=== PATIENT | female | born 1995 ===

== ENCOUNTER 2021-05-27 07:52 | Observation (INO) ==
--- NOTE | 2021-05-16 15:29 | Anesthesiology Consultation ---
Date of Service May 16, 2021 Assessment & Plan (1) Encounter for pre-operative examination: COVID screening: Per assessment on 05/16: Travel screen negative, no known COVID- 19 positive contacts or current COVID-19 related symptoms. Patient vaccinated. Surgeon arranging preop COVID testing. Awaiting results. Chart Review Chart Review: Acceptable Risk for Surgery and Patient NOT seen in Pre Admission Testing History Surgery Operation Date: 05/27/21 10:05 Proposed Procedures p Bilateral Non-Cancerous Mastectomy with Free Nipple Graft - Cristel Chavez MD Height/Weight Height: 5 ft 5 in Weight: 85.729 kg Allergies Allergy/AdvReac Type Severity Reaction Status Date / Time No Known Allergies Allergy Verified 05/16/21 13:48 Medications Home Medications Medication Instructions Recorded Confirmed Last Taken famotidine 20 mg tablet 20 mg PO HS 02/03/21 05/16/21 Unknown pantoprazole 40 mg tablet,delayed 40 mg PO HS 02/03/21 05/16/21 Unknown release sertraline 50 mg tablet 50 mg PO HS 02/03/21 05/16/21 Unknown testosterone 20.25 mg/1.25 gram 1 pump TOPICAL QA 02/03/21 05/16/21 Unknown (1.62 %) transdermal gel pump cephalexin 500 mg capsule 500 mg PO TID 7 Days #21 cap 05/14/21 05/16/21 Unknown oxycodone-acetaminophen 5 mg-325 1 tab PO Q4H PRN 3 Days #18 tab 05/14/21 05/16/21 Unknown mg tablet (Percocet) Marijuana 1 inh INHALATION MONTHLY 05/16/21 05/16/21 Unknown albuterol sulfate 90 mcg/actuation 1 puff INHALATION QID PRN 05/16/21 05/16/21 Unknown aerosol inhaler (Ventolin HFA) cholecalciferol (vitamin D3) 25 25 mcg PO HS 05/16/21 05/16/21 Unknown mcg (1,000 unit) tablet (Vitamin D3) lactobacillus combination no.4 3 3,000 mmu cells PO HS 05/16/21 05/16/21 Unknown billion cell capsule (Probiotic) lamotrigine 25 mg tablet (Lamictal) 25 mg PO HS 05/16/21 05/16/21 Unknown venlafaxine 75 mg capsule,extended 75 mg PO QAM 05/16/21 05/16/21 Unknown release 24 hr Past Medical History Medical History (Updated 05/16/21 @ 15:27 by Manisha Bailey) Anxiety Asthma Controlled Depression Zhcqnu-wn-qafm transgender person GERD (gastroesophageal reflux disease) Hyperlipemia Migraine Hx Temporomandibular joint disorder Remote right sided popping, no locking Past Family History Family History Mother Diabetes Other Breast cancer Heart disease Lung cancer Prostate cancer Past Surgical History Surgical History History of appendectomy History of cholecystectomy History of colonoscopy History of esophagogastroduodenoscopy (EGD) History of oral surgery History of tonsillectomy Social History Smoking Status: Former smoker Do You Dip or Chew Tobacco: No Smoking End Date: QUIT 2018 Hx Alcohol Use: Yes Alcohol type: wine alcohol intake frequency: a few times a month Hx Substance Use: Yes substance use type: marijuana Substance Use Type Other:: MARIJUANA INHALATION FEW TIMES PER MONTH Lab Results Anesthesia Preop Results Results Anesthesia Widget: WBC 5.56 K/uL (4.8-10.8) 05/15/21 Hgb 16.6 g/dL (12.0-16.0) H 05/15/21 Hct 47.6 % (37-47) H 05/15/21 Plt 304 K/uL (130-400) 05/15/21 Na 138 mmol/L (136-145) 05/15/21 K 3.7 mmol/L (3.5-5.1) 05/15/21 Cl 105 mmol/L (98-107) 05/15/21 CO2 28 mmol/L (21-32) 05/15/21 BUN 6 mg/dl (7-18) L 05/15/21 Creat 0.78 mg/dl (0.6-1.2) 05/15/21 Glucose Level 90 mg/dl (70-99) 05/15/21 PT 10.3 Seconds (9.0-12.0) 05/15/21 PTT 27.9 Seconds (21.0-31.0) 05/15/21 INR 1.0 (0.9-1.1) 05/15/21
[~2021-05-27 07:52] MED LIST: LACTATED RINGER'S 1,000 ML IV SCH; ceFAZolin 2000MG 2,000 MG/15 ML SYR IV SCH
--- NOTE | 2021-05-27 08:45 | History & Physical Bridge Note ---
Date of Service May 27, 2021 History & Physical Bridge Note I have examined the patient, reviewed the History & Physical and in the interval since the performance of the History & Physical I have noted the following changes of clinical significance: no changes noted
[2021-05-27] MEDS ORDERED: LIDOCAINE 2% 2 ML VIAL/AMP(20MG/ML) INFIL ONE (09:25)
[2021-05-27] MEDS ORDERED: ONDANSETRON INJ 2 MG/ML 2 ML VIAL ONE (09:25)
[2021-05-27] MEDS ORDERED: DEXAMETHASONE SOD INJ 4 MG/ML VIAL ONE (09:25)
[2021-05-27] MEDS ORDERED: ROCURONIUM BROMIDE 10 MG/ML 5 ML VIAL IV ONE ×2 (09:25→11:15)
[2021-05-27] MEDS ORDERED: PROPOFOL IV EMULSION 10 MG/ML 20 ML VIAL IV ONE (09:25)
[2021-05-27] MEDS ORDERED: MIDAZOLAM HCL 1 MG/ML 2ML VIAL ONE (09:26)
[2021-05-27] MEDS ORDERED: fentaNYL citrate 100 MCG/2 ML VIAL ONE (09:26)
[2021-05-27] MEDS ORDERED: PROMETHAZINE HCL 6.25 MG in SODIUM CHLORIDE 0.9% 50 ML IV PRN (09:40)
[2021-05-27] MEDS ORDERED: ATROPINE SULFATE 0.1 MG/ML 10ML SYR IV PRN (09:40)
[2021-05-27] MEDS ORDERED: ONDANSETRON INJ 2 MG/ML 2 ML VIAL IV PRN (09:40)
[2021-05-27] MEDS ORDERED: HYDROmorphone INJ 2 MG/ML SYR/VIAL IV PRN (09:40)
[2021-05-27] MEDS ORDERED: ePHEDrine sulfate 50 MG/ML AMP IV PRN (09:40)
[2021-05-27] MEDS ORDERED: BUPIVACAINE 0.25% 30 ML VIAL ONE (09:57)
[2021-05-27] MEDS ORDERED: LIDOCAINE/EPINEPHRINE 1% 20 ML VIAL ONE (09:57)
[2021-05-27] MEDS ORDERED: THROMBIN FOR SOLN 20000 UNIT KIT ONE (10:03)
[2021-05-27] MEDS ORDERED: EPINEPHrine HCL INJ 1 MG/ML 30ML ONE (10:27)
[2021-05-27] MEDS ORDERED: LIDOCAINE 1% LOCAL 20 ML VIAL ONE (10:27)
[2021-05-27] MEDS ORDERED: EPINEPHrine INJ 1 MG/ML AMP ONE (10:29)
[2021-05-27] MEDS ORDERED: HYDROmorphone INJ 2 MG/ML SYR/VIAL ONE (11:15)
[2021-05-27] MEDS ORDERED: ACETAMINOPHEN 1000 MG/100 ML IV IV ONE (13:27)
--- NOTE | 2021-05-27 14:32 | Post Operative Brief Note ---
PG Immediate Post Op with CF Date of Surgery May 27, 2021 Pre & Post Diagnosis Operation Date: 05/27/21 10:00 Pre-Op Diagnosis: Caeqpx-ze-Gvrn Transgender Person Post-Op Diagnosis: Rxvvjn-ck-Fomx Transgender Person I identified the patient and participated in the time-out.: Yes Procedure Operation Date: 05/27/21 10:00 Actual Procedures p Bilateral Non-Cancerous Mastectomy with Free Nipple Graft(Bilateral) - Cristel Chavez MD Surgeon Cristel Chavez MD Nurse Advisor Alyssa Leong PA-C Estimated Blood Loss 25 Findings Consistent with Post-Op Diagnosis Specimens Specimen Description: A: Left Breast Tissue (Fresh) B: Right Breast Tissue (Fresh) Drains Mikey-Cash Drain (15 bruneian with trocar x2)
--- NOTE | 2021-05-27 14:55 | Operative Report ---
PG Post Operative Report Pre & Post Diagnosis Operation Date: 05/27/21 10:00 Pre-Op Diagnosis: Mrhror-vi-Darl Transgender Person Post-Op Diagnosis: Yjuesr-kw-Wvje Transgender Person I identified the patient and participated in the time-out.: Yes Procedure Operation Date: 05/27/21 10:00 Actual Procedures p Bilateral Non-Cancerous Mastectomy with Free Nipple Graft(Bilateral) - Cristel Chavez MD Surgeon Cristel Chavez MD [place] Line Attendant Alyssa Leong PA-C Estimated Blood Loss 25 Findings Consistent with Post-Op Diagnosis Specimens bilateral breast tissue to pathology Drains JORDAN x2 Indications transgender male, desiring gender affirming mastectomy Description of Procedure The risks benefits and alternatives of the procedure were explained the patient agreed and signed consent. He was identified and marked in the preoperative hol ding area. I marked the incisions along the inframammary folds and made the superior incision in an elliptical fashion in order to provide a horizontal scar pattern if possible. I also marked the position where anticipated placing the nipple areolar complex and had the patient confirmed the site. He was brought to the operating room where he was placed under general anesthesia in supine position without incident. Surgical site was prepped and draped sterilely. A timeout procedure was performed. 1% lidocaine with epinephrine was used to anesthetize the planned incisions. I began the procedure on the left side by making a small stab incision along the superior incision. Tumescent fluid consisting of lidocaine plain, epinephrine, and lactated Ringer's was infiltrated along the lateral border of the pectoralis major. Liposuction to this area was performed using a 3 mm suction cannula until there was improvement in the volume and contour of the axillary breast and fat covering lateral pectoralis. A breast tourniquet was created using a lap sponge and Sheridan clamp, and areolar and nipple grafts were harvested. I elected to use a 28 mm size nipple areolar complex. It was harvested using a 15 blade scalpel and was defatted using a curved iris scissor. It was placed on the back table in a saline soaked sponge until I was ready to place the grafts. I began by making the inferior incision using 15 blade scalpel. Incision was deepened through dermis using electrocautery, and deepened down to the chest wall. Similar incision was made superiorly, beveling the incision in order to allow for some hair growth through the scar. Incision was again deepened using the peak plasma blade. Superiorly, breast was undermined to the clavicle, and divided along the meridian, sutured at the meridian, and triangular medial and lateral flaps were excised using a scalpel and electrocautery. The flap was trimmed until it was of uniform thickness, approximately 2 cm in thickness and equal to the thickness of the abdominal subcutaneous tissue. Throughout dissection, hemostasis was achieved using the bovie. The breast was removed and passed off as specimen. I did perform some additional undermininginferiorly along the inframammary fold to facilitate closure and disrupt the inframammary fold. Prior to closure, quarter percent Marcaine plain was used to anesthetize the flaps as well as pectoralis fascia, and a 15 [place] Real drain was placed in the wound bed and brought out through a separate stab incision laterally. Thrombin spray was utilized to ensure hemostasis. Deep dermis was closed using 2-0 Vicryl interrupted sutures, superficial dermis closed using 3-0 PDO running Quill suture, and subcuticular wound closure was performed using 3-0 Monocryl. Following closure, the nipple areolar complex was inset. I made an incision at the patient's desired location, at the lateral border of pectoralis and just superior to the incision. This was de-epithelialized. The areolar graft was inset using 5-0 fast absorbing suture. 8 4-0 silk tie over bolster sutures were placed. the nipple graft was thinned, a small kletsel dehe wintun of areolar graft was removed, and the nipple graft was sutured into place using 5-0 chromic running suture, and a Xeroform and cotton bolster was placed. An identical procedure was performed on the right side. There is excellent symmetry at the close of the case. Dermabond Prineo was applied to the incisions. Dry dressing followed by a binder were placed. Alyssa Leong PA-C was present and scrubbed throughout the entire procedure and was instrumental in assisting in retraction, assisting in simultaneous wound closure, and preparing the nipple areolar complex grafts. I attest to the content of the Intraoperative Record and any orders documented therein. Any exceptions are noted below.
[2021-05-27] MEDS: fentaNYL citrate 100 MCG/2 ML VIAL IV PRN ×2 (15:13→15:18)
--- NOTE | 2021-05-27 15:28 | Anesthesiology Progress Note ---
Date of Service May 27, 2021 Anesthesia Post Procedure Vital Signs Vital Signs: Temp Pulse Pulse Resp BP Pulse Ox 05/27/21 15:20 65 16 145/84 H 94 05/27/21 15:10 80 20 144/75 H 95 05/27/21 15:00 69 16 129/79 95 05/27/21 14:50 36.2 C L 83 14 148/75 H 96 05/27/21 08:15 37.0 C 81 18 132/85 99 Pain Intensity Bilateral Breast: Pain Intensity: 4 Transfer of Care Handoff Completed per policy Notes Mental Status: alert / awake / arousable and participated in evaluation Patient Amnestic to Procedure: Yes Nausea / Vomiting: adequately controlled Pain: adequately controlled Airway Patency, RR, SpO2: stable & adequate BP & HR: stable & adequate Hydration State: stable & adequate Anesthetic Complications: no major complications apparent and Pt Satisfied with anesthetic care
--- NOTE | 2021-05-27 15:42 | Surgery Progress Note ---
Date of Service May 27, 2021 Assessment & Plan (1) Lvhxdv-qp-whgg transgender person: Plan: s/p bilateral non-cancerous mastectomy with free nipple grafts 1. doing well, anticipate d/c in AM Plan: s/p bilateral non-cancerous mastectomy with free nipple grafts. 1. doing well- anticipate d/c in AM Subjective Marlo is seen in the PACU following bilateral non-cancerous mastectomy with free nipple graft. He offers no concerns and has excellent pain control. Physical Exam Physical Exam: bilateral drains with scant output- have not been emptied. no drainage noted on outer gauze dressings Results & Data ([facility]) Vital Signs (Past 12 Hours) Vital Signs Temp Pulse Pulse Resp BP Pulse Ox 05/27/21 15:30 36.2 C L 82 18 142/74 H 98 05/27/21 15:20 65 16 145/84 H 94 05/27/21 15:10 80 20 144/75 H 95 05/27/21 15:00 69 16 129/79 95 05/27/21 14:50 36.2 C L 83 14 148/75 H 96 05/27/21 08:15 37.0 C 81 18 132/85 99 PG Care Time/CCT Total # of Minutes Spent Total Time Spent with Patient: Total time spent is greater than 50% in coordination of care (as documented) at patient's floor/unit and/or counseling patient: Coding Level of Care Code None Diagnoses Yojffo-qo-lztp transgender person Z78.9
[2021-05-27] MEDS ORDERED: MoRPHine SULFATE 4 MG/ML 1 ML CARP\\VIAL IV PRN (16:08)
[2021-05-27] MEDS ORDERED: diphenhydrAMINE Capsule 25 MG CAP PO PRN (16:08)
[2021-05-27] MEDS ORDERED: diphenhydrAMINE 50 MG/ML VIAL IV PRN (16:08)
[2021-05-27] MEDS ORDERED: ACETAMINOPHEN 325 MG TAB PO PRN (16:08)
[2021-05-27] MEDS ORDERED: MoRPHine SULFATE 2 MG/ML CARP IV PRN (16:08)
[2021-05-27] MEDS ORDERED: oxyCODONE/ACETAMINOPHEN 5mg/325mg TAB PO PRN (16:08)
[2021-05-27] MEDS ORDERED: LORazepam 0.5 MG TAB PO PRN (16:08)
[2021-05-27] MEDS ORDERED: ONDANSETRON 4 MG OD TAB PO PRN (16:08)
[2021-05-27] MEDS: D5W AND 1/2NSS + 20MEQ KCL 20 MEQ/1,000 ML BAG IV SCH (16:43)
[2021-05-27] MEDS: ceFAZolin 2000MG 2,000 MG/15 ML SYR IV SCH (17:44)
[2021-05-27] MEDS: oxyCODONE/ACETAMINOPHEN 5mg/325mg TAB PO PRN (19:30)
[2021-05-27] MEDS ORDERED: PANTOprazole 40 MG TAB PO SCH (21:00)
[2021-05-27] MEDS ORDERED: lamoTRIgine 25 MG TAB PO SCH (21:00)
[2021-05-27] MEDS ORDERED: SERTRALINE HCL 50 MG TABLET PO SCH (21:00)
[2021-05-27] MEDS ORDERED: FAMOTIDINE 20 MG TAB PO SCH (21:00)
[2021-05-28] MEDS: ceFAZolin 2000MG 2,000 MG/15 ML SYR IV SCH (01:06)
[2021-05-28] MEDS: D5W AND 1/2NSS + 20MEQ KCL 20 MEQ/1,000 ML BAG IV SCH ×2 (04:32→15:32)
[2021-05-28] MEDS ORDERED: VENLAFAXINE HCL XR 75 MG CAPXR PO SCH (09:00)
[2021-05-28] MEDS ORDERED: MULTIVITAMIN TAB PO SCH (09:00)
--- NOTE | 2021-05-28 09:12 | Surgery Progress Note ---
Date of Service May 28, 2021 Assessment & Plan (1) Qqdqsi-nf-yvny transgender person: Plan: s/p bilateral non-cancerous mastectomy with free nipple graft POD#1 1. pain is controlled, and he is tolerating regular diet, ambulating with ease 2. d/c home this morning, office follow-up tomorrow. d/c instructions reviewed with the patient (2) S/P mastectomy, bilateral: Admission and Anticipated Discharge Date Admission Date: May 27, 2021 Subjective Marlo is feeling well and has great pain control. He reports multiple ambulations in the hallway, no difficulty voiding, tolerating regular diet. He feels ready for d/c home. Physical Exam Physical Exam: drains with minimal bloody and serous output. binder and gauze dressings in place- no saturation on dressings Results & Data ([facility]) Vital Signs (Past 12 Hours) Vital Signs Temp Pulse Resp BP BP Pulse Ox 05/28/21 07:30 36.7 C 88 18 115/72 98 05/28/21 03:34 36.6 C 86 14 111/72 96 05/27/21 23:23 36.9 C 86 14 127/78 96 PG Care Time/CCT Total # of Minutes Spent Total Time Spent with Patient: Total time spent is greater than 50% in coordination of care (as documented) at patient's floor/unit and/or counseling patient: Coding Level of Care Code None Diagnoses Gshbld-sj-wamk transgender person Z78.9 S/P mastectomy, bilateral Z90.13
[2021-05-28] MEDS: oxyCODONE/ACETAMINOPHEN 5mg/325mg TAB PO PRN (10:37)
[2021-05-28 15:10] VITALS: TEMP 98.1; O2SAT 96
[2021-05-28 15:50] VITALS: BP 115/72; PULSE 93
--- NOTE | 2021-05-29 13:51 | Discharge Summary ---
Date of Service May 29, 2021 Admission HPI Per Admitting Provider see admission H&P Admission Exam Per Admitting Provider see admission H&P Principal Diagnosis female to male transgender, s/p bilateral non-cancerous mastectomy with free nipple graft Discharge Exam VSS, drains with scant output, binder/gauze dressings in place without saturation Discharge Data Allergies Allergy/AdvReac Type Severity Reaction Status Date / Time No Known Allergies Allergy Verified 05/27/21 08:13 Procedures Performed Operation Date: 05/27/21 10:00 Actual Procedures p Bilateral Non-Cancerous Mastectomy with Free Nipple Graft(Bilateral) - Cristel Chavez MD Ordered Studies 05/27/21 05:00 US - OR guided needle placemen Routine Hospital Course (1) S/P mastectomy, bilateral: Patient presented to [facility] with history of gender dysphoria, brmflj-rf-ejeb transgender. He was taken to the OR and underwent bilateral non-cancerous mastectomy with free nipple graft. There were no intraoperative complications. He was taken to recovery and transferred to med/surg for observation. On POD#1, he was feeling well. He was tolerating a regular diet and ambulating. On exam, his vitals were stable. His incisions were CDI and nipples viable. He was discharged home with instructions to follow-up in the office in one day. (2) Ldplqn-jm-cpdq transgender person: Total Time Total Time Spent Total Time Spent (In Minutes): 15 Total Time Includes: Examination of the Patient, Medication Reconciliation and Communication With Other Providers Discharge Plan Discharge Items Patient Disposition: Home - Self-Care Reason For Visit: Female to Male Transgender Person Discharge Diagnosis: s/p bilateral mastectomy with free nipple graft Activity: As commented below Non-emergency contact: Surgeon Call non-emergency contact if: you have any medication questions, your pain is not controlled, you have a fever, your wound has increased redness, your wound has increased drainage and your wound pain has increased Follow-up/Referrals: Alyssa Leong PA-C [Physician Knife Setter] - Eric Mishra MD [Primary Care Provider] - Diet: Regular Addtl Attending Provider Instructions: ACTIVITY RECOMMENDATIONS: __Normal activities _x_No bending, lifting or straining. Try to keep your arms at shoulder height or below __No driving __Driving allowed when you are off pain medications _x_Walking permitted __You should have help at home for ___ days DRESSINGS: __No dressings required _x_Keep dressings dry/in place until first office visit. You may adjust the binder for comfort, but keep compression on at all times __Remove dressings ___ and leave dressings off __Apply ice ___ days __Remove dressings and reapply garment __Apply antibiotic ointment (Bacitracin, Neosporin, etc) to wounds 3-4 times/day for 10 days BATHING: _x_Keep dressings dry _x_Sponge bathing permitted away from your chest/surgical site __Showering permitted _x_No swimming, hot tubs or soaking in a tub MEDICATIONS: Resume previous medications unless instructed otherwise by your surgeon. _x_Do not use aspirin, Motrin, Advil or Ibuprofen as these may promote bleeding. Please use Tylenol. _x_Prescription(s) provided: pain medication and antibiotics were provided at your last office visit- begin antibiotics today OTHER INSTRUCTIONS: _x_Record drain output 2-3 times per day SPECIAL CARE INSTRUCTIONS: * It is normal to have a mild fever after surgery. If your temperature is higher than 101.5 degrees F, please call the office at [phone]. * Constipation is a typical side effect of pain medication. An cfnh-awq-luvnzqr stool softener will help relieve this. * Leaking around surgical drains may occur and should not cause concern. So metimes these drains become clogged. If this happens, remove the bulb and milk the clot out of the tube, then replace the bulb. * Drainage from wounds after liposuction is normal and should be expected. Garments will become soiled. You should protect furniture and bedding. This drainage should mostly subside within 2-3 days. Leave garments in place unless instructed to remove them. * If you have unusual drainage from a wound or are concerned you have an infection or have any questions or concerns, please call the office at [phone]. FOLLOW UP VISIT: If not already scheduled, please call the office, , when you return home after surgery to schedule an appointment to be seen in __1_ days. Pending Studies at Discharge: Yes Studies:: pathology Stand-Alone Forms: [facility], Opioid Pain Management, Smoking Cessation Medications and DC Order Prescriptions: Continued oxycodone-acetaminophen [Percocet] 5-325 mg tablet 1 tab PO Q4H PRN (Reason: pain) 3 Days Qty: 18 RF: 0 cephalexin 500 mg capsule 500 mg PO TID 7 Days Qty: 21 RF: 0 testosterone 20.25 mg/1.25 gram (1.62 %) gel in metered-dose pump 1 pump topical QAM RF: 0 famotidine 20 mg tablet 20 mg PO HS RF: 0 pantoprazole 40 mg tablet,delayed release (DR/EC) 40 mg PO HS RF: 0 sertraline 50 mg tablet 50 mg PO HS RF: 0 venlafaxine 75 mg Capsule,Extended Release 24hr 75 mg PO QAM RF: 0 lamotrigine [Lamictal] 25 mg Tablet 25 mg PO HS RF: 0 cholecalciferol (vitamin D3) [Vitamin D3] 25 mcg (1,000 unit) Tablet 25 mcg PO HS RF: 0 albuterol sulfate [Ventolin HFA] 90 mcg/actuation Hfa Aerosol Inhaler 1 puff INHALATION QID PRN (Reason: Wheezing) RF: 0 Probiotic 3 billion cell Capsule 3,000 mmu cells PO HS RF: 0 Discontinued Marijuana 1 inh inhalation MONTHLY RF: 0 Discharge Orders: Discharge Order (Routine); Ordered 05/28/21 Ordered By: Alyssa Abreu/Other Patient Handouts: DVT Post Op Prevention Admission Data Admit Date/Time: 05/27/21 14:46 Attending Provider: Cristel Chavez Admit Provider: Cristel Chavez Primary Care Provider: Eric Mishra Other Interventions: Discharge Summary Assessment (RN) Last Done: 05/28/21 15:49 Coding Level of Care Code 41601 OBS Care - Discharge Diagnoses S/P mastectomy, bilateral Z90.13 Nvxnql-bw-[id number] transgender person Z78.9
== END 2021-05-28 18:21 | disposition home or self-care (01) ==
LOC: ASU 07:52 → 3W 07:52
DX: Z87.891 Personal history of nicotine dependence; F64.0 Transsexualism